=== PATIENT | male | born 1955 | race Caucasian/White ===

== ENCOUNTER 2020-02-09 07:25 | Day surgery (SDC) | payer OTHER ==
[2020-02-07 13:17] VITALS: BMI 21.7
[2020-02-09] MEDS ORDERED: LIDOCAINE HCL/PF 2% SDV 5ML VIAL ONE (07:31)
[2020-02-09] MEDS ORDERED: PROPOFOL 20 ML ONE ×4 (07:31)
[2020-02-09 09:02] VITALS: TEMP 98.2
[2020-02-09 09:33] VITALS: BP 116/66; PULSE 66
--- NOTE | 2020-02-13 16:03 | PATH ---
Surgical Pathology Report Patient Name: DASHAWN GREEN [facility]. Rec. #: [id number] /Age/Gender: 1955 (Age: 64) / M Account: [id number] Location: [facility] Taken: 02/09/2020 Received: 02/09/2020 Reported: 02/13/2020 Physicians: Addi Shields M.D. Specimen(s) Received A: ANTRUM B: GASTRIC BODY C: DISTAL ESOPHAGUS Clinical History History of duodenal ulcer, surveillance colonoscopy, history of polyps Postoperative diagnosis: Gastritis, GERD, hemorrhoids Final Diagnosis A. GASTRIC ANTRUM, BIOPSY: GASTRIC MUCOSA WITH CHRONIC GASTRITIS. IMMUNOSTAIN FOR H. PYLORI IS NEGATIVE. NEGATIVE FOR INTESTINAL METAPLASIA. B. GASTRIC BODY, BIOPSY: GASTRIC MUCOSA WITH CHRONIC GASTRITIS. IMMUNOSTAIN FOR H. PYLORI IS NEGATIVE. NEGATIVE FOR INTESTINAL METAPLASIA. C. DISTAL ESOPHAGUS, BIOPSY: SQUAMOUS MUCOSA WITH REFLUX ESOPHAGITIS. NEGATIVE FOR INTESTINAL METAPLASIA. Electronically Signed Boubacar Crews M.D. Gross Description A. Received in formalin, labeled "biopsy gastric antrum" are 2 lisa, irregular portions of soft tissue measuring 0.2 and 0.3 cm. in greatest dimension. The specimens are submitted in toto in one cassette. B. Received in formalin, labeled "biopsy gastric body" are 2 lisa, irregular portions of soft tissue measuring 0.1 and 0.4 cm. in greatest dimension. The specimens are submitted in toto in one cassette. C. Received in formalin, labeled "biopsy distal esophagus" are 2 lisa, irregular portions of soft tissue measuring 0.3 and 0.5 cm. in greatest dimension. The specimens are submitted in toto in one cassette. 02/12/2020 [facility]02/12/2020
== END 2020-02-09 10:16 | disposition home or self-care (01) ==
LOC: FASU-ENDO 07:25
PROVIDERS: ATTEND Internal Medicine Gastroenterology
PROC: 0DB38ZX Excision of Lower Esophagus, Via Natural or Artificial Opening Endoscopic, Diagnostic (ICD-10-PCS; 2020-02-09)
PROC: 0DB68ZX Excision of Stomach, Via Natural or Artificial Opening Endoscopic, Diagnostic (ICD-10-PCS; 2020-02-09)
PROC: 0DJD8ZZ Inspection of Lower Intestinal Tract, Via Natural or Artificial Opening Endoscopic (ICD-10-PCS; principal; 2020-02-09 08:26)
DX: Z86.010 Personal history of colon polyps (principal); Z87.11 Personal history of peptic ulcer disease; K29.50 Unspecified chronic gastritis without bleeding; K21.0 Gastro-esophageal reflux disease with esophagitis
CPT/HCPCS: 43239; G0105; 88305-TC; 88342-TC